=== PATIENT | female | born 1960 | race Caucasian/White ===

== ENCOUNTER 2017-07-30 18:12 | Emergency (ER) | payer MEDICARE, MEDICAID ==
[2017-07-30 18:12] VITALS: BMI 26.5
--- NOTE | 2017-07-30 18:47 | ED PDOC ---
HPI: General Adult Time Seen by Provider: 07/30/17 18:26 Chief Complaint (Nursing): Lower Extremity Problem/Injury Chief Complaint (Provider): head injury, foot and ankle pain History Per: Patient Additional Complaint(s): 57-year-old female presents to emergency department with injury to head and left foot and ankle status post trip and fall this morning. Patient states very early this morning she woke up to use the bathroom and accidentally tripped and fell. Patient denies dizziness or syncope prior to fall. She hit the back of her head against the ground and did not sustain loss of consciousness. Patient has a history of polio and has had multiple surgeries to left leg. She has been able to walk with her cane which she uses at baseline since time of fall this morning. Past Medical History Reviewed: Historical Data, Nursing Documentation, Vital Signs Vital Signs: Last Vital Signs Temp 98.4 F 07/30/17 18:17 Pulse 74 07/30/17 18:17 Resp 16 07/30/17 18:17 BP 140/54 L 07/30/17 18:17 Pulse Ox 97 07/30/17 19:30 - Medical History PMH: Asthma Other PMH: Polio - Surgical History Other surgeries: Multiple surgeries to left leg due to polio - Family History Family History: States: No Known Family Hx - Living Arrangements Living Arrangements: With Family - Social History Current smoker - smoking cessation education provided: No Alcohol: None Drugs: Denies - Home Medications Home Medications: Ambulatory Orders Medication Instructions Recorded Albuterol HFA [Ventolin HFA 90 2 puff IH [id number] 08/03/16 mcg/actuation (8 g)] Naproxen 500 mg PO BID #30 tab 09/22/16 Cyclobenzaprine [Flexeril] 5 mg PO TID #12 tab 10/19/16 Ibuprofen [Motrin] 600 mg PO TID PRN #30 tab 10/19/16 - Allergies Allergies/Adverse Reactions: Allergies Allergy/AdvReac Type Severity Reaction Status Date / Time No Known Allergies Allergy Verified 07/30/17 18:16 Review of Systems ROS Statement: Except As Marked, All Systems Reviewed And Found Negative Eyes: Negative for: Vision Change Gastrointestinal: Negative for: Nausea, Vomiting Musculoskeletal: Positive for: Other (left foot and ankle injury) Neurological: Positive for: Headache, Other (head injury with no LOC). Negative for: Dizziness Physical Exam - Reviewed Nursing Documentation Reviewed: Yes Vital Signs Reviewed: Yes - Physical Exam Appears: Positive for: Well, Non-toxic, No Acute Distress Head Exam: Negative for: ATRAUMATIC (Contusion noted to the right parietal scalp with moderate tenderness to palpation) Skin: Positive for: Normal Color. Negative for: Rash Eye Exam: Positive for: Normal appearance ENT: Positive for: Normal ENT Inspection Extremity: Positive for: Other (chronic shortening of left lower extremity noted , mild swelling and tenderness diffusely to ankle and foot region, normal cap refill, normal distal sensation) Neurologic/Psych: Positive for: Alert, host/hostess ground II-XII (grossly intact), Oriented. Negative for: Motor/Sensory Deficits, Aphasia, Facial Droop - ECG O2 Sat by Pulse Oximetry: 97 Pulse Ox Interpretation: Normal Medical Decision Making Medical Decision Makin year with head injury and left leg injury s/p trip and fall Plan: PO tylenol CT head X-ray left foot and ankle Disposition - Clinical Impression Clinical Impression: Head injury, Left leg injury - Patient ED Disposition Is Patient to be Admitted: Transfer of Care - Disposition Disposition: Transfer of Care Disposition Time: 20:00 Condition: STABLE Forms: [employer] [facility] (Italian) Patient Signed Over To: [facility] Comments: Signed out pending diagnostic testing results and final disposition
--- NOTE | 2017-07-30 21:15 | CT ---
EXAM: CT Head Without Intravenous Contrast CLINICAL HISTORY: 57 years old, female; Injury or trauma; Fall; Initial encounter; Blunt trauma (contusions or hematomas); Consciousness not specified TECHNIQUE: Axial computed tomography images of the head/brain without intravenous contrast. All CT scans at this facility use one or more dose reduction techniques, viz.: automated exposure control; ma/kV adjustment per patient size (including targeted exams where dose is matched to indication; i.e. head); or iterative reconstruction technique. Coronal and sagittal reformatted images were created and reviewed. COMPARISON: No relevant prior studies available. FINDINGS: Brain: No acute intracranial hemorrhage. No significant white matter disease. No edema. Ventricles: No significant ventriculomegaly. Bones: No acute displaced fracture. Sinuses: Unremarkable as visualized. No acute sinusitis. Mastoid air cells: Unremarkable as visualized. No mastoid effusion. IMPRESSION: No acute intracranial hemorrhage, or suspicious mass effect.
--- NOTE | 2017-07-30 21:58 | RAD ---
EXAM: XR Left Ankle Complete, 3 or More Views CLINICAL HISTORY: 57 years old, female; Injury or trauma; Fall; Initial encounter; Blunt trauma; Ankle; Left; Prior surgery; Surgery date: 6+ months TECHNIQUE: Frontal, lateral and oblique views of the left ankle. COMPARISON: No relevant prior studies available. FINDINGS: Bones/joints: Diffuse bony demineralization, with extensive hardware at the tibiotalar joint. No significant overlying soft tissue swelling. Soft tissues: As above. IMPRESSION: Diffuse bony demineralization without acute displaced fracture, as detailed above.
--- NOTE | 2017-07-30 22:00 | RAD ---
EXAM: XR Left Foot Complete, 3 or More Views CLINICAL HISTORY: 57 years old, female; Injury or trauma; Fall; Initial encounter; Blunt trauma; Foot; Left; Prior surgery TECHNIQUE: Frontal, lateral and oblique views of the left foot. COMPARISON: No relevant prior studies available. FINDINGS: Bones/joints: Diffuse bony demineralization with extensive orthopedic hardware (fixation pins and screws) within the great toe and the tibiotalar joint. No significant soft tissue swelling. No acute displaced fracture. IMPRESSION: Diffuse bony demineralization following orthopedic fixation without acute displaced fracture.
[2017-07-30 22:06] VITALS: BP 134/72; PULSE 53; RESP 14; TEMP 97.9; O2SAT 96
--- NOTE | 2017-07-30 22:16 | ED PDOC ---
- ECG O2 Sat by Pulse Oximetry: 96 - Progress ED Course And Treament: HEAD CT: NAD XRY OF FOOT: NEG FOR FX XRY OF ANKLE: NEG FOR FX Disposition - Clinical Impression Clinical Impression: Head injury, Left leg injury - POA Present On Arrival: None - Disposition Referrals: [facility] [Outside] Disposition: Routine/Home Disposition Time: 22:14 Condition: STABLE Prescriptions: Naproxen 1 tab PO Q12 PRN #14 tab PRN Reason: Pain, Moderate (4-7) Instructions: Head Injury (ED), Ankle Sprain (ED), Foot Sprain (ED) Forms: [facility] ([place]), [facility] ED School/Work Excuse
== END 2017-07-30 22:27 | disposition home or self-care (01) ==
LOC: H.ER 18:12
DX: S09.90XA Unspecified injury of head, initial encounter (principal); S89.92XA Unspecified injury of left lower leg, initial encounter; S99.912A Unspecified injury of left ankle, initial encounter; S99.922A Unspecified injury of left foot, initial encounter; W01.0XXA Fall on same level from slipping, tripping and stumbling without subsequent striking against object, initial encounter; Y92.89 Other specified places as the place of occurrence of the external cause; J45.909 Unspecified asthma, uncomplicated; Z86.12 Personal history of poliomyelitis